=== PATIENT | female | born 1965 | race Hispanic/Latino ===

== ENCOUNTER 2018-12-20 11:21 | Emergency (ER) | payer OTHER ==
[~2018-12-20] VITALS: Ht 165.1 cm; Wt 67.6 kg
--- OUTSIDE RECORDS SUMMARY | 2018-12-20 11:23 | XMS REPORT ---
Author Author [facility] Address Unknown Phone Unavailable Care Team Providers Care Market Risk Manager Name Role Phone Unavailable Unavailable Problems This patient has no known problems. Allergies, Adverse Reactions, Alerts This patient has no known allergies or adverse reactions. Medications This patient has no known medications. Encounters Start Date/Time End Date/Time Encounter Type Admission Type Attending Clinicians Care Facility Care Department Encounter ID 2018-09-18 15:11:25 2018-09-18 15:11:25 Out[facility] [id number]
[2018-12-20] MEDS ORDERED: PANTOPRAZOLE 40 MG 10ML VIAL IV STA (11:38)
[2018-12-20] MEDS ORDERED: DONNATAL/LIDOCAINE/MAALOX 30 ML SUSP PO ONE (11:45)
[2018-12-20] MEDS ORDERED: SODIUM CHLORIDE 0.9% 1000ML 1,000 ML IV SCH (11:45)
[2018-12-20] MEDS ORDERED: LIDOCAINE VISC 2% SOLN 15 ML UDC ONE (11:48)
[2018-12-20] MEDS ORDERED: BELLADONNA ALK/PHENOBARBITAL 5 ML UDC ONE ×2 (11:48→11:49)
[2018-12-20] MEDS ORDERED: MAGNESIUM/ALUMINUM/SIMETHICONE 30 ML UDC ONE (11:48)
[2018-12-20] MEDS ORDERED: PANTOPRAZOLE 40 MG 10ML VIAL ONE (11:48)
[2018-12-20] MEDS ORDERED: SODIUM CHLORIDE 0.9% 1000ML 1,000 ML ONE (11:48)
[2018-12-20 12:18] LABS: BASOPHILS % 0.3 % (0.0-1.0); EOSINOPHILS # (AUTO) 0.1 (0.0-0.4); EOSINOPHILS % 1.4 % (0.0-6.0); HEMATOCRIT 41.3 % (34.2-44.1); HEMOGLOBIN 13.9 g/dL (12.0-16.0); LYMPHOCYTES # (AUTO) 1.7 (1.0-3.2); LYMPHOCYTES % 46.6 % (18.0-39.1); MEAN CORPUSCULAR HEMOGLOBIN 33.1 pg (28-32); MEAN CORPUSCULAR HGB CONC 33.7 g/dL (31-35); MEAN CORPUSCULAR VOLUME 98.3 fL (81-99); MONOCYTES # (AUTO) 0.4 (0.2-0.8); MONOCYTES % 10.5 % (4.4-11.3); NEUTROPHILS # (AUTO) 1.5 (2.1-6.9); NEUTROPHILS % 40.9 % (38.7-80.0); PLATELET COUNT 197 x10e3/uL (140-360); RED CELL DISTRIBUTION WIDTH 12.3 % (11.7-14.4)
--- NOTE | 2018-12-20 14:10 | Diagnostic Imaging Report ---
EXAM: Gallbladder/right upper quadrant Ultrasound INDICATION: Right upper quadrant pain COMPARISON: None. TECHNIQUE: Transverse and longitudinal images of the gallbladder/right upper quadrant were obtained. FINDINGS: Liver: Increased hepatic echogenicity could be due to fatty infiltration. Otherwise, unremarkable appearance of the liver measuring 14.4 cm Gallbladder: Stones/Sludge: None Wall: 0.2 cm Appearance: No wall thickening, pericholecystic fluid or hydrops. Sonographic Bacon's Sign: Negative Bile Ducts: Intrahepatic Ducts: No dilatation Extrahepatic Ducts: Common bile duct measures 0.2 cm, no dilatation Main portal vein and normal in appearance with normal blood flow measuring 0.6 cm. Right kidney normal in appearance measuring 10.2 cm. Pancreas normal in appearance. Visualized abdominal aorta and inferior vena cava unremarkable. Free Fluid: No ascites or pleural effusion IMPRESSION: Increased hepatic echogenicity could be due to fatty infiltration. Normal appearing gallbladder. No gallstones. Signed by: Dr. Nito Campbell M.D. on 12/20/2018 2:07 PM
[2018-12-20] MEDS ORDERED: ONDANSETRON HCL INJ 2MG/ML 2ML 2 MG/ML VIAL IV STA (14:22)
[2018-12-20] MEDS ORDERED: MORPHINE SULFATE INJ 4 MG/ML INJ 1ML IV PRN (14:30)
[2018-12-20 14:31] VITALS: BP 165/90
== END 2018-12-20 14:45 | disposition home or self-care (01) ==
LOC: FSED 11:21
DX: K29.00 Acute gastritis without bleeding (principal); E03.9 Hypothyroidism, unspecified; F32.9 Major depressive disorder, single episode, unspecified
CPT/HCPCS: 36415; 76705; 85025; 99284; C9113; J2405; J7030; J2270

== ENCOUNTER 2021-12-21 09:39 | Emergency (ER) | payer OTHER ==
[~2021-12-21] VITALS: Ht 165.1 cm; Wt 68.0 kg
[2021-12-21] MEDS ORDERED: CLONIDINE HCL 0.1 MG TAB ONE (10:56)
[2021-12-21] MEDS ORDERED: CLONIDINE HCL 0.1 MG TAB PO ONE (11:00)
[2021-12-21] MEDS ORDERED: CLONIDINE HCL0.1 MG PO (11:45)
== END 2021-12-21 11:53 | disposition home or self-care (01) ==
LOC: FSED 09:42
DX: R51.9 Headache, unspecified (principal); R03.0 Elevated blood-pressure reading, without diagnosis of hypertension; R20.2 Paresthesia of skin; E03.9 Hypothyroidism, unspecified; F41.9 Anxiety disorder, unspecified
CPT/HCPCS: 70450; 80053; 81003; 85025; 99284